=== PATIENT | male | born 1950 | race Caucasian/White ===

== ENCOUNTER → 2022-10-17 | Outpatient (CLI) | payer MEDICARE, BC | END | disposition home or self-care (01) | LOC: LAB 04:30 → LAB SHORT 04:30 | PROVIDERS: Internal Medicine Nephrology | DX: N18.30 Chronic kidney disease, stage 3 unspecified (principal); D63.1 Anemia in chronic kidney disease; N25.81 Secondary hyperparathyroidism of renal origin; E55.9 Vitamin D deficiency, unspecified; E29.1 Testicular hypofunction; R76.9 Abnormal immunological finding in serum, unspecified; R94.5 Abnormal results of liver function studies; R94.6 Abnormal results of thyroid function studies | CPT/HCPCS: 81050 ==

== ENCOUNTER → 2025-02-05 | Outpatient (CLI) | payer MEDICARE, BC | LOC: LAB SHORT 15:52 → LAB 15:52 | DX: N18.6 End stage renal disease (principal) | CPT/HCPCS: 84132 ==